=== PATIENT | male | born 1935 | race Caucasian/White ===

== ENCOUNTER 2020-02-02 11:08 | Inpatient (IN) ==
[2020-02-02 11:51] LABS: Basophils % 0.1 % (0.0-0.8); Hemoglobin 12.2 GM/DL (14.0-18.0); Hgb & Hct Comparison OK; Immature Granulocytes % 0.4 %; Lymphocytes # 21.3 10*3/uL (1.4-4.0); Lymphocytes % 80.9 % (21.2-54.2); Mean Corpuscular Hemoglobin 34 PG (27-34); Mean Corpuscular Volume 103.4 FL (87-102); Monocytes # 0.2 10*3/uL (0.11-0.8); Monocytes % 0.9 % (1.7-12.7); Neutrophils # 4.7 10*3/uL (1.4-7.4); Neutrophils % 17.7 % (38.7-73.9); Platelet Count 192 T/CUMM (130-400)
[2020-02-02 12:07] LABS: Albumin/Globulin Ratio 0.9 RATIO (1.1-2.2); Anion Gap 11.8 MMOL/L (5.0-15.0); Bilirubin,Total 0.8 MG/DL (0.2-1.0); Globulin 3.5 G/DL (2.3-3.5); Osmolality,Calculated 267.4 MOS/KG (273-304); Potassium 3.8 MMOL/L (3.5-5.1)
[2020-02-02] MEDS: ACETAMINOPHEN 325 MG TABLET PO PRN ×2 (12:10→20:31)
[2020-02-02] MEDS ORDERED: LEVOFLOXACIN INJ 750 MG in PREMIX 1 EACH IV STA (12:14)
[2020-02-02] MEDS ORDERED: LEVOFLOXACIN INJ 150 ML IV ONE (12:28)
[2020-02-02 12:32] LABS: Atypical Lymphocytes 1+; Lymphocytes 71 % (20-55); Monocytes 1 % (2-15); Segmented Neutrophils 28 % (50-85); Smudge Cells Moderate; Total Cells Counted 100
[2020-02-02 12:33] LABS: Macrocytosis 1+; Platelet Estimate Adequate
[2020-02-02] MEDS ORDERED: ALBUTEROL/IPRATROPIUM 3 ML NEB RESP TX PRN (14:30)
[2020-02-02] MEDS ORDERED: DEXTROSE 50% 25 GM/50 ML VIAL IV PRN (14:30)
[2020-02-02] MEDS ORDERED: ONDANSETRON 4 MG/2 ML VIAL IV PRN (14:30)
[2020-02-02] MEDS ORDERED: GLUCAGON 1 MG VIAL IM PRN (14:30)
[2020-02-02] MEDS ORDERED: LACTULOSE 20 GM/30 ML UDCUP PO PRN (14:30)
[2020-02-02] MEDS ORDERED: DOCUSATE SODIUM 100 MG CAPSULE PO PRN (14:30)
[2020-02-02] MEDS: ENOXAPARIN 40 MG/0.4 ML SYRINGE SUBCUT SCH (20:31)
[2020-02-02] MEDS ORDERED: guaiFENesin/DM ER 600-30 MG TABLET PO SCH (21:00)
[2020-02-03 03:54] LABS: Basophils % 0.1 % (0.0-0.8); Eosinophils # 0.1 10*3/uL (0.0-0.87); Eosinophils % 0.6 % (0.00-10.9); Hemoglobin 12.2 GM/DL (14.0-18.0); Hgb & Hct Comparison OK; Immature Granulocytes % 0.2 %; Immature Granulocytes Absolute 0.05 #; Lymphocytes # 17.5 10*3/uL (1.4-4.0); Lymphocytes % 80.8 % (21.2-54.2); Mean Corpuscular Hemoglobin 34 PG (27-34); Mean Corpuscular Volume 101.9 FL (87-102); Monocytes # 0.3 10*3/uL (0.11-0.8); Monocytes % 1.2 % (1.7-12.7); Neutrophils # 3.7 10*3/uL (1.4-7.4); Neutrophils % 17.1 % (38.7-73.9); Platelet Count 190 T/CUMM (130-400)
[2020-02-03 04:17] LABS: Lymphocytes 64 % (20-55); Monocytes 3 % (2-15); Segmented Neutrophils 33 % (50-85)
[2020-02-03 04:18] LABS: Platelet Estimate Normal; Total Cells Counted 100
[2020-02-03 04:19] LABS: Albumin/Globulin Ratio 0.8 RATIO (1.1-2.2); Anion Gap 8.4 MMOL/L (5.0-15.0); Bilirubin,Total 0.8 MG/DL (0.2-1.0); Globulin 3.4 G/DL (2.3-3.5); Osmolality,Calculated 270.1 MOS/KG (273-304); Potassium 4.4 MMOL/L (3.5-5.1); VLDL CHOLESTEROL 10.8 MG/DL
[2020-02-03] MEDS: LEVOTHYROXINE 88 MCG TABLET PO SCH (06:06)
[2020-02-03] MEDS: ACETAMINOPHEN 325 MG TABLET PO PRN ×2 (06:06→12:20)
[2020-02-03] MEDS: predniSONE 5 MG TABLET PO SCH (09:13)
[2020-02-03] MEDS: PANTOPRAZOLE 40 MG TABLET PO SCH (09:13)
[2020-02-03] MEDS: LEVOFLOXACIN INJ 750 MG in PREMIX 1 EACH IV SCH (11:40)
[2020-02-03] MEDS: SCOPOLAMINE 1.5 MG PATCH TRANSDERM SCH (12:19)
[2020-02-03] MEDS: ENOXAPARIN 40 MG/0.4 ML SYRINGE SUBCUT SCH (20:54)
[2020-02-04] MEDS: ACETAMINOPHEN 325 MG TABLET PO PRN ×3 (02:15→20:13)
[2020-02-04 06:05] LABS: Basophils % 0.1 % (0.0-0.8); Hematocrit 34.9 VOL% (42.0-52.0); Hemoglobin 11.8 GM/DL (14.0-18.0); Hgb & Hct Comparison OK; Immature Granulocytes % 0.3 %; Immature Granulocytes Absolute 0.07 #; Lymphocytes # 18.7 10*3/uL (1.4-4.0); Lymphocytes % 84.6 % (21.2-54.2); Mean Corpuscular HGB Conc 33.8 GM/DL (32-36); Mean Corpuscular Hemoglobin 34 PG (27-34); Mean Corpuscular Volume 101.2 FL (87-102); Monocytes # 0.1 10*3/uL (0.11-0.8); Monocytes % 0.6 % (1.7-12.7); Neutrophils # 3.2 10*3/uL (1.4-7.4); Neutrophils % 14.4 % (38.7-73.9); Platelet Count 178 T/CUMM (130-400)
[2020-02-04 06:22] LABS: Albumin/Globulin Ratio 0.7 RATIO (1.1-2.2); Anion Gap 9.6 MMOL/L (5.0-15.0); Bilirubin,Total 0.8 MG/DL (0.2-1.0); Globulin 3.5 G/DL (2.3-3.5); Osmolality,Calculated 265.4 MOS/KG (273-304); Potassium 3.6 MMOL/L (3.5-5.1)
[2020-02-04] MEDS: LEVOTHYROXINE 88 MCG TABLET PO SCH (06:24)
[2020-02-04 08:39] LABS: Atypical Lymphocytes Few; Lymphocytes 82 % (20-55); Monocytes 1 % (2-15); Platelet Estimate Normal; Segmented Neutrophils 16 % (50-85); Smudge Cells 1+; Total Cells Counted 100
[2020-02-04 08:40] LABS: Macrocytosis Slight
[2020-02-04] MEDS: predniSONE 5 MG TABLET PO SCH (08:57)
[2020-02-04] MEDS: PANTOPRAZOLE 40 MG TABLET PO SCH (08:57)
[2020-02-04] MEDS: LEVOFLOXACIN INJ 750 MG in PREMIX 1 EACH IV SCH (11:22)
[2020-02-04] MEDS: PIPERACILLIN/TAZOBACTAM 3,375 MG in SODIUM CHLORIDE 0.9% 100 ML IV SCH ×2 (13:44→20:13)
[2020-02-04] MEDS: ENOXAPARIN 40 MG/0.4 ML SYRINGE SUBCUT SCH (20:13)
[2020-02-05] MEDS: PIPERACILLIN/TAZOBACTAM 3,375 MG in SODIUM CHLORIDE 0.9% 100 ML IV SCH ×3 (03:18→17:25)
[2020-02-05 05:37] LABS: Basophils % 0.1 % (0.0-0.8); Hematocrit 35.5 VOL% (42.0-52.0); Hgb & Hct Comparison OK; Immature Granulocytes % 0.3 %; Immature Granulocytes Absolute 0.07 #; Lymphocytes # 18.1 10*3/uL (1.4-4.0); Lymphocytes % 78.2 % (21.2-54.2); Mean Corpuscular HGB Conc 33.8 GM/DL (32-36); Mean Corpuscular Hemoglobin 34 PG (27-34); Mean Corpuscular Volume 100.9 FL (87-102); Monocytes # 1.1 10*3/uL (0.11-0.8); Monocytes % 4.6 % (1.7-12.7); Neutrophils # 3.9 10*3/uL (1.4-7.4); Neutrophils % 16.8 % (38.7-73.9); Platelet Count 186 T/CUMM (130-400)
[2020-02-05 06:03] LABS: Atypical Lymphocytes Few; Band Neutrophils 2 % (0-10); Blast Cells 2; Lymphocytes 75 % (20-55); Monocytes 1 % (2-15); Segmented Neutrophils 20 % (50-85); Smudge Cells Few; Total Cells Counted 100
[2020-02-05] MEDS: LEVOTHYROXINE 88 MCG TABLET PO SCH (06:03)
[2020-02-05 06:04] LABS: Hypochromasia 1+; Macrocytosis 1+; Platelet Estimate Adequate
[2020-02-05 06:06] LABS: Albumin/Globulin Ratio 0.6 RATIO (1.1-2.2); Anion Gap 11.1 MMOL/L (5.0-15.0); Bilirubin,Total 0.9 MG/DL (0.2-1.0); Globulin 3.7 G/DL (2.3-3.5); Magnesium 1.9 MG/DL (1.8-2.4); Osmolality,Calculated 266.4 MOS/KG (273-304); Potassium 4.1 MMOL/L (3.5-5.1)
[2020-02-05] MEDS: DEXAMETHASONE 4 MG TABLET PO SCH (09:14)
[2020-02-05] MEDS: PANTOPRAZOLE 40 MG TABLET PO SCH (09:14)
[2020-02-05] MEDS: LEVOFLOXACIN INJ 750 MG in PREMIX 1 EACH IV SCH (13:46)
[2020-02-05] MEDS: ENOXAPARIN 40 MG/0.4 ML SYRINGE SUBCUT SCH (20:37)
[2020-02-06] MEDS: PIPERACILLIN/TAZOBACTAM 3,375 MG in SODIUM CHLORIDE 0.9% 100 ML IV SCH ×2 (01:09→08:26)
[2020-02-06 05:43] LABS: Basophils % 0.2 % (0.0-0.8); Hematocrit 35.7 VOL% (42.0-52.0); Hemoglobin 12.1 GM/DL (14.0-18.0); Hgb & Hct Comparison OK; Immature Granulocytes % 0.3 %; Immature Granulocytes Absolute 0.07 #; Lymphocytes # 19.7 10*3/uL (1.4-4.0); Lymphocytes % 78.3 % (21.2-54.2); Mean Corpuscular HGB Conc 33.9 GM/DL (32-36); Mean Corpuscular Hemoglobin 34 PG (27-34); Mean Corpuscular Volume 100.6 FL (87-102); Monocytes # 0.3 10*3/uL (0.11-0.8); Monocytes % 1.2 % (1.7-12.7); NRBC # 0.02 10*3/uL; Neutrophils # 5.1 10*3/uL (1.4-7.4); Nucleated Red Blood Cells % 0.1 /100WBC; Platelet Count 197 T/CUMM (130-400)
[2020-02-06] MEDS: LEVOTHYROXINE 88 MCG TABLET PO SCH (06:00)
[2020-02-06 06:09] LABS: Albumin/Globulin Ratio 0.6 RATIO (1.1-2.2); Anion Gap 14.1 MMOL/L (5.0-15.0); Bilirubin,Total 1.3 MG/DL (0.2-1.0); Globulin 3.7 G/DL (2.3-3.5); Osmolality,Calculated 272.1 MOS/KG (273-304); Potassium 4.1 MMOL/L (3.5-5.1)
[2020-02-06 06:25] LABS: Atypical Lymphocytes Few; Lymphocytes 77 % (20-55); Monocytes 1 % (2-15); Segmented Neutrophils 21 % (50-85); Smudge Cells Few
[2020-02-06 06:26] LABS: Blast Cells 1; Total Cells Counted 100
[2020-02-06 06:27] LABS: Hypochromasia 1+; Macrocytosis 1+; Platelet Estimate Adequate
[2020-02-06] MEDS: DEXAMETHASONE 4 MG TABLET PO SCH (08:24)
[2020-02-06] MEDS: PANTOPRAZOLE 40 MG TABLET PO SCH (08:25)
[2020-02-06] MEDS: SCOPOLAMINE 1.5 MG PATCH TRANSDERM SCH (08:25)
[2020-02-06] MEDS: ACETAMINOPHEN 325 MG TABLET PO PRN (08:26)
[2020-02-06] MEDS: SODIUM CHLORIDE 0.9% 1,000 ML IV SCH (11:53)
[2020-02-06] MEDS ORDERED: BENZOCAINE/MENTHOL LOZENGE 18/BOX PO PRN (13:46)
[2020-02-06 15:16] LABS: ABG Base Excess -1.7 MMOL/L (-2.5-2.5); ABG HCO3 22.9 MMOL/L (20-26); ABG Oxygen Saturation 92.6 % (95-100); ABG PH 7.423 (7.35-7.45); ABG TCO2 19.5 MMOL/L (23-27)
[2020-02-06] MEDS: ENOXAPARIN 40 MG/0.4 ML SYRINGE SUBCUT SCH (21:48)
[2020-02-07] MEDS: SODIUM CHLORIDE 0.9% 1,000 ML IV SCH ×2 (02:37→15:56)
[2020-02-07 05:08] LABS: Basophils % 0.1 % (0.0-0.8); Hematocrit 33.3 VOL% (42.0-52.0); Hemoglobin 10.9 GM/DL (14.0-18.0); Hgb & Hct Comparison OK; Immature Granulocytes % 0.3 %; Immature Granulocytes Absolute 0.06 #; Lymphocytes # 17.7 10*3/uL (1.4-4.0); Lymphocytes % 77.8 % (21.2-54.2); Mean Corpuscular HGB Conc 32.7 GM/DL (32-36); Mean Corpuscular Hemoglobin 34 PG (27-34); Mean Corpuscular Volume 103.4 FL (87-102); Monocytes # 0.1 10*3/uL (0.11-0.8); Monocytes % 0.6 % (1.7-12.7); Neutrophils # 4.8 10*3/uL (1.4-7.4); Neutrophils % 21.2 % (38.7-73.9); Platelet Count 215 T/CUMM (130-400)
[2020-02-07] MEDS: ACETAMINOPHEN 325 MG TABLET PO PRN ×3 (05:11→21:12)
[2020-02-07 06:07] LABS: Albumin/Globulin Ratio 0.7 RATIO (1.1-2.2); Anion Gap 10.1 MMOL/L (5.0-15.0); Bilirubin,Total 1.1 MG/DL (0.2-1.0); Globulin 3.3 G/DL (2.3-3.5); Potassium 4.1 MMOL/L (3.5-5.1)
[2020-02-07 06:58] LABS: Atypical Lymphocytes Few; Band Neutrophils 1 % (0-10); Blast Cells 2; Lymphocytes 72 % (20-55); Monocytes 2 % (2-15); Platelet Estimate Adequate; Segmented Neutrophils 23 % (50-85); Smudge Cells Moderate; Total Cells Counted 100
[2020-02-07 06:59] LABS: Hypochromasia 1+; Macrocytosis Slight
[2020-02-07] MEDS: LEVOTHYROXINE 88 MCG TABLET PO SCH (07:02)
[2020-02-07] MEDS: ATORVASTATIN 20 MG TABLET PO SCH (08:47)
[2020-02-07] MEDS: PANTOPRAZOLE 40 MG TABLET PO SCH (08:47)
[2020-02-07] MEDS: DEXAMETHASONE 4 MG TABLET PO SCH (08:48)
[2020-02-07] MEDS ORDERED: METOPROLOL SUCCINATE XL 25 MG TABLET PO SCH (09:00)
[2020-02-07] MEDS: ENOXAPARIN 40 MG/0.4 ML SYRINGE SUBCUT SCH (21:13)
[2020-02-08] MEDS: ACETAMINOPHEN 325 MG TABLET PO PRN (05:00)
[2020-02-08] MEDS: SODIUM CHLORIDE 0.9% 1,000 ML IV SCH ×2 (05:01→21:49)
[2020-02-08 05:09] LABS: Basophils % 0.1 % (0.0-0.8); Hematocrit 38.1 VOL% (42.0-52.0); Hemoglobin 12.3 GM/DL (14.0-18.0); Hgb & Hct Comparison OK; Immature Granulocytes % 0.5 %; Immature Granulocytes Absolute 0.13 #; Lymphocytes # 18.6 10*3/uL (1.4-4.0); Lymphocytes % 69.7 % (21.2-54.2); Mean Corpuscular HGB Conc 32.3 GM/DL (32-36); Mean Corpuscular Hemoglobin 34 PG (27-34); Mean Corpuscular Volume 105.2 FL (87-102); Monocytes # 0.2 10*3/uL (0.11-0.8); Monocytes % 0.6 % (1.7-12.7); Neutrophils # 7.8 10*3/uL (1.4-7.4); Neutrophils % 29.1 % (38.7-73.9); Platelet Count 247 T/CUMM (130-400)
[2020-02-08 05:43] LABS: Atypical Lymphocytes Few; Blast Cells 1; Hypochromasia 1+; Lymphocytes 72 % (20-55); Segmented Neutrophils 27 % (50-85); Smudge Cells Moderate; Total Cells Counted 100
[2020-02-08 05:44] LABS: Macrocytosis 1+; Platelet Estimate Normal
[2020-02-08 05:47] LABS: Albumin/Globulin Ratio 0.7 RATIO (1.1-2.2); Anion Gap 13.3 MMOL/L (5.0-15.0); Potassium 4.3 MMOL/L (3.5-5.1)
[2020-02-08] MEDS: PANTOPRAZOLE 40 MG TABLET PO SCH (08:49)
[2020-02-08] MEDS: DEXAMETHASONE 4 MG TABLET PO SCH (08:49)
[2020-02-08] MEDS: LEVOTHYROXINE 88 MCG TABLET PO SCH (08:49)
[2020-02-08] MEDS: ATORVASTATIN 20 MG TABLET PO SCH (08:49)
[2020-02-08] MEDS: ENOXAPARIN 40 MG/0.4 ML SYRINGE SUBCUT SCH (21:50)
[2020-02-09] MEDS: ACETAMINOPHEN 325 MG TABLET PO PRN (05:25)
[2020-02-09 06:29] LABS: Basophils % 0.1 % (0.0-0.8); Hematocrit 34.1 VOL% (42.0-52.0); Hgb & Hct Comparison OK; Immature Granulocytes % 0.5 %; Immature Granulocytes Absolute 0.12 #; Lymphocytes # 16.1 10*3/uL (1.4-4.0); Lymphocytes % 63.6 % (21.2-54.2); Mean Corpuscular HGB Conc 32.3 GM/DL (32-36); Mean Corpuscular Hemoglobin 34 PG (27-34); Mean Corpuscular Volume 104.3 FL (87-102); Monocytes # 0.2 10*3/uL (0.11-0.8); Monocytes % 0.6 % (1.7-12.7); Neutrophils # 8.9 10*3/uL (1.4-7.4); Neutrophils % 35.2 % (38.7-73.9); Platelet Count 283 T/CUMM (130-400)
[2020-02-09 06:57] LABS: Anion Gap 10.2 MMOL/L (5.0-15.0); Osmolality,Calculated 269.2 MOS/KG (273-304); Potassium 4.2 MMOL/L (3.5-5.1)
[2020-02-09 07:24] LABS: Atypical Lymphocytes Few; Blast Cells 2; Lymphocytes 61 % (20-55); Platelet Estimate Adequate; Segmented Neutrophils 37 % (50-85); Smudge Cells Few; Total Cells Counted 100
[2020-02-09 07:25] LABS: Macrocytosis Slight
[2020-02-09] MEDS: LEVOTHYROXINE 88 MCG TABLET PO SCH (08:25)
[2020-02-09] MEDS: ATORVASTATIN 20 MG TABLET PO SCH (08:26)
[2020-02-09] MEDS: DEXAMETHASONE 4 MG TABLET PO SCH (08:27)
[2020-02-09] MEDS: SODIUM CHLORIDE 0.9% 1,000 ML IV SCH (11:51)
[2020-02-09] MEDS ORDERED: REMDESIVIR 200 MG in SODIUM CHLORIDE 0.9% 210 ML IV ONE (12:00)
[2020-02-09] MEDS: ENOXAPARIN 40 MG/0.4 ML SYRINGE SUBCUT SCH (20:25)
[2020-02-10] MEDS: ACETAMINOPHEN 325 MG TABLET PO PRN (01:12)
[2020-02-10] MEDS: SODIUM CHLORIDE 0.9% 1,000 ML IV SCH (02:11)
[2020-02-10] MEDS: LEVOTHYROXINE 88 MCG TABLET PO SCH (06:05)
[2020-02-10 08:01] LABS: Albumin/Globulin Ratio 0.6 RATIO (1.1-2.2); Anion Gap 9.2 MMOL/L (5.0-15.0); Globulin 3.6 G/DL (2.3-3.5); Osmolality,Calculated 283.5 MOS/KG (273-304); Potassium 4.2 MMOL/L (3.5-5.1)
[2020-02-10] MEDS: DEXAMETHASONE 4 MG TABLET PO SCH (08:25)
[2020-02-10] MEDS: ATORVASTATIN 20 MG TABLET PO SCH (08:25)
[2020-02-10] MEDS ORDERED: MAGNESIUM HYDROXIDE SUSP 30 ML UDCUP PO PRN (09:14)
[2020-02-10] MEDS ORDERED: MAGNESIUM HYDROXIDE SUSP 30 ML UDCUP PO ONE (09:14)
[2020-02-10] MEDS: REMDESIVIR 100 MG in SODIUM CHLORIDE 0.9% 230 ML IV SCH (12:08)
[2020-02-10 12:40] LABS: 25 Hydroxy Vitamin D Total 19.4 NG/ML
[2020-02-10] MEDS: ASCORBIC ACID 500 MG TABLET PO SCH ×2 (13:14→22:23)
[2020-02-10] MEDS: ZINC SULFATE 220 MG CAPSULE PO SCH (13:14)
[2020-02-10] MEDS: ENOXAPARIN 40 MG/0.4 ML SYRINGE SUBCUT SCH (22:23)
[2020-02-11 05:56] LABS: Albumin/Globulin Ratio 0.6 RATIO (1.1-2.2); Anion Gap 9.6 MMOL/L (5.0-15.0); Bilirubin,Total 1.1 MG/DL (0.2-1.0); Globulin 4.1 G/DL (2.3-3.5); Osmolality,Calculated 280.7 MOS/KG (273-304); Potassium 4.6 MMOL/L (3.5-5.1)
[2020-02-11] MEDS: LEVOTHYROXINE 88 MCG TABLET PO SCH (06:22)
[2020-02-11] MEDS: SODIUM CHLORIDE 0.9% 1,000 ML IV SCH (06:57)
[2020-02-11] MEDS: ASCORBIC ACID 500 MG TABLET PO SCH ×2 (08:45→22:00)
[2020-02-11] MEDS: ATORVASTATIN 20 MG TABLET PO SCH (08:45)
[2020-02-11] MEDS: DEXAMETHASONE 4 MG TABLET PO SCH (08:45)
[2020-02-11] MEDS: ZINC SULFATE 220 MG CAPSULE PO SCH (08:45)
[2020-02-11] MEDS: REMDESIVIR 100 MG in SODIUM CHLORIDE 0.9% 230 ML IV SCH (11:53)
[2020-02-11] MEDS ORDERED: FUROSEMIDE 20 MG/2 ML VIAL IV ONE (14:28)
[2020-02-11] MEDS: ENOXAPARIN 40 MG/0.4 ML SYRINGE SUBCUT SCH (21:59)
[2020-02-12 06:35] LABS: Albumin/Globulin Ratio 0.6 RATIO (1.1-2.2); Anion Gap 7.4 MMOL/L (5.0-15.0); Bilirubin,Total 0.7 MG/DL (0.2-1.0); Globulin 3.6 G/DL (2.3-3.5); Potassium 4.4 MMOL/L (3.5-5.1)
[2020-02-12] MEDS: LEVOTHYROXINE 112 MCG TABLET PO SCH (07:16)
[2020-02-12] MEDS: ATORVASTATIN 20 MG TABLET PO SCH (09:19)
[2020-02-12] MEDS: ASCORBIC ACID 500 MG TABLET PO SCH ×2 (09:19→21:20)
[2020-02-12] MEDS: ZINC SULFATE 220 MG CAPSULE PO SCH (09:19)
[2020-02-12] MEDS: REMDESIVIR 100 MG in SODIUM CHLORIDE 0.9% 230 ML IV SCH (13:12)
[2020-02-12] MEDS: ENOXAPARIN 40 MG/0.4 ML SYRINGE SUBCUT SCH (21:20)
[2020-02-13] MEDS: LEVOTHYROXINE 112 MCG TABLET PO SCH (06:20)
[2020-02-13 06:45] LABS: Albumin/Globulin Ratio 0.5 RATIO (1.1-2.2); Anion Gap 12.9 MMOL/L (5.0-15.0); Bilirubin,Total 2.3 MG/DL (0.2-1.0); Potassium 4.9 MMOL/L (3.5-5.1)
[2020-02-13] MEDS: VALSARTAN 80 MG TABLET PO SCH (08:37)
[2020-02-13] MEDS: ASCORBIC ACID 500 MG TABLET PO SCH ×2 (08:37→21:34)
[2020-02-13] MEDS: ATORVASTATIN 20 MG TABLET PO SCH (08:37)
[2020-02-13] MEDS: ZINC SULFATE 220 MG CAPSULE PO SCH (08:37)
[2020-02-13] MEDS: REMDESIVIR 100 MG in SODIUM CHLORIDE 0.9% 230 ML IV SCH (12:07)
[2020-02-13] MEDS ORDERED: FUROSEMIDE 40 MG/4 ML VIAL IV ONE (16:03)
[2020-02-13] MEDS: ENOXAPARIN 40 MG/0.4 ML SYRINGE SUBCUT SCH (21:33)
[2020-02-14] MEDS: LEVOTHYROXINE 112 MCG TABLET PO SCH (06:25)
[2020-02-14 06:39] LABS: Albumin/Globulin Ratio 0.6 RATIO (1.1-2.2); Anion Gap 10.8 MMOL/L (5.0-15.0); Bilirubin,Total 1.6 MG/DL (0.2-1.0); Globulin 3.9 G/DL (2.3-3.5); Osmolality,Calculated 277.8 MOS/KG (273-304); Potassium 3.8 MMOL/L (3.5-5.1)
[2020-02-14] MEDS: LINEZOLID 600 MG TABLET PO SCH ×2 (09:16→20:52)
[2020-02-14] MEDS: ZINC SULFATE 220 MG CAPSULE PO SCH (09:16)
[2020-02-14] MEDS: ASCORBIC ACID 500 MG TABLET PO SCH ×2 (09:16→20:52)
[2020-02-14] MEDS: ENOXAPARIN 60 MG/0.6 ML SYRINGE SUBCUT SCH ×2 (09:16→20:52)
[2020-02-14] MEDS: CEFEPIME 1,000 MG in SODIUM CHLORIDE 0.9% 100 ML IV SCH ×3 (09:16→20:51)
[2020-02-14] MEDS: VALSARTAN 80 MG TABLET PO SCH (09:17)
[2020-02-15] MEDS: CEFEPIME 1,000 MG in SODIUM CHLORIDE 0.9% 100 ML IV SCH ×4 (03:46→20:19)
[2020-02-15 05:52] LABS: Anion Gap 11.2 MMOL/L (5.0-15.0); Osmolality,Calculated 273.1 MOS/KG (273-304); Potassium 4.2 MMOL/L (3.5-5.1)
[2020-02-15] MEDS: LEVOTHYROXINE 112 MCG TABLET PO SCH (05:59)
[2020-02-15] MEDS: LINEZOLID 600 MG TABLET PO SCH ×2 (08:47→20:20)
[2020-02-15] MEDS: VALSARTAN 80 MG TABLET PO SCH (08:47)
[2020-02-15] MEDS: ZINC SULFATE 220 MG CAPSULE PO SCH (08:47)
[2020-02-15] MEDS: ASCORBIC ACID 500 MG TABLET PO SCH ×2 (08:47→20:20)
[2020-02-15] MEDS: ENOXAPARIN 60 MG/0.6 ML SYRINGE SUBCUT SCH ×2 (08:47→20:19)
[2020-02-16] MEDS: CEFEPIME 1,000 MG in SODIUM CHLORIDE 0.9% 100 ML IV SCH ×4 (02:51→21:48)
[2020-02-16] MEDS: LEVOTHYROXINE 112 MCG TABLET PO SCH (06:11)
[2020-02-16] MEDS: VALSARTAN 80 MG TABLET PO SCH (09:08)
[2020-02-16] MEDS: LINEZOLID 600 MG TABLET PO SCH ×2 (09:09→21:48)
[2020-02-16] MEDS: ZINC SULFATE 220 MG CAPSULE PO SCH (09:09)
[2020-02-16] MEDS: ASCORBIC ACID 500 MG TABLET PO SCH ×2 (09:09→21:48)
[2020-02-16] MEDS: ENOXAPARIN 60 MG/0.6 ML SYRINGE SUBCUT SCH ×2 (09:10→21:49)
[2020-02-17] MEDS: CEFEPIME 1,000 MG in SODIUM CHLORIDE 0.9% 100 ML IV SCH ×4 (03:57→21:15)
[2020-02-17 05:41] LABS: Basophils % 0.2 % (0.0-0.8); Eosinophils % 0.1 % (0.00-10.9); Hematocrit 37.1 VOL% (42.0-52.0); Hemoglobin 12.3 GM/DL (14.0-18.0); Hgb & Hct Comparison OK; Immature Granulocytes % 2.4 %; Immature Granulocytes Absolute 0.35 #; Lymphocytes # 5.8 10*3/uL (1.4-4.0); Lymphocytes % 40.7 % (21.2-54.2); Mean Corpuscular HGB Conc 33.2 GM/DL (32-36); Mean Corpuscular Hemoglobin 34 PG (27-34); Mean Corpuscular Volume 102.8 FL (87-102); Monocytes # 0.5 10*3/uL (0.11-0.8); Monocytes % 3.4 % (1.7-12.7); Neutrophils # 7.6 10*3/uL (1.4-7.4); Neutrophils % 53.2 % (38.7-73.9); Platelet Count 387 T/CUMM (130-400)
[2020-02-17 06:13] LABS: Anion Gap 9.6 MMOL/L (5.0-15.0); Osmolality,Calculated 271.1 MOS/KG (273-304); Potassium 4.6 MMOL/L (3.5-5.1)
[2020-02-17] MEDS: LEVOTHYROXINE 112 MCG TABLET PO SCH (06:13)
[2020-02-17] MEDS: ENOXAPARIN 60 MG/0.6 ML SYRINGE SUBCUT SCH ×2 (10:17→21:09)
[2020-02-17 11:05] LABS: Platelet Estimate Increased
[2020-02-17] MEDS: VALSARTAN 80 MG TABLET PO SCH (11:22)
[2020-02-17] MEDS: ASCORBIC ACID 500 MG TABLET PO SCH ×2 (11:23→21:54)
[2020-02-17] MEDS: ZINC SULFATE 220 MG CAPSULE PO SCH (11:23)
[2020-02-17] MEDS: LINEZOLID 600 MG TABLET PO SCH ×2 (11:23→21:54)
[2020-02-17] MEDS: SODIUM CHLORIDE 0.9% 1,000 ML IV SCH (12:40)
[2020-02-17] MEDS: ATROVENT INHALER INH SCH ×3 (14:48→22:10)
[2020-02-17] MEDS: ALBUTEROL INHALER 18 GM INH SCH ×3 (14:48→22:10)
[2020-02-17] MEDS ORDERED: ALBUTEROL/IPRATROPIUM 3 ML NEB RESP TX SCH (15:00)
[2020-02-17] MEDS ORDERED: ACETYLCYSTEINE 20% 800 MG/4 ML VIAL RESP TX SCH (15:00)
[2020-02-17] MEDS: guaiFENesin 200 MG/10 ML UDCUP PO SCH (21:10)
[2020-02-18] MEDS: SODIUM CHLORIDE 0.9% 1,000 ML IV SCH ×2 (01:49→14:31)
[2020-02-18] MEDS: CEFEPIME 1,000 MG in SODIUM CHLORIDE 0.9% 100 ML IV SCH ×4 (03:16→21:06)
[2020-02-18] MEDS: LEVOTHYROXINE 112 MCG TABLET PO SCH (06:27)
[2020-02-18] MEDS: ENOXAPARIN 60 MG/0.6 ML SYRINGE SUBCUT SCH ×2 (09:27→21:09)
[2020-02-18] MEDS: ATROVENT INHALER INH SCH ×4 (09:58→21:12)
[2020-02-18] MEDS: guaiFENesin 200 MG/10 ML UDCUP PO SCH ×2 (09:58→21:14)
[2020-02-18] MEDS: ALBUTEROL INHALER 18 GM INH SCH ×4 (09:58→21:11)
[2020-02-18] MEDS: LINEZOLID 600 MG TABLET PO SCH ×2 (09:59→21:11)
[2020-02-18] MEDS: VALSARTAN 80 MG TABLET PO SCH (09:59)
[2020-02-18] MEDS: ZINC SULFATE 220 MG CAPSULE PO SCH (09:59)
[2020-02-18] MEDS: ASCORBIC ACID 500 MG TABLET PO SCH ×2 (09:59→21:11)
[2020-02-19] MEDS: CEFEPIME 1,000 MG in SODIUM CHLORIDE 0.9% 100 ML IV SCH ×4 (02:30→21:18)
[2020-02-19] MEDS: SODIUM CHLORIDE 0.9% 1,000 ML IV SCH ×3 (06:04→21:28)
[2020-02-19] MEDS: LEVOTHYROXINE 112 MCG TABLET PO SCH (06:06)
[2020-02-19] MEDS: VALSARTAN 80 MG TABLET PO SCH (08:19)
[2020-02-19] MEDS: ATROVENT INHALER INH SCH ×4 (08:20→21:31)
[2020-02-19] MEDS: ENOXAPARIN 60 MG/0.6 ML SYRINGE SUBCUT SCH ×2 (08:20→21:19)
[2020-02-19] MEDS: ALBUTEROL INHALER 18 GM INH SCH ×4 (08:21→21:31)
[2020-02-19] MEDS: ASCORBIC ACID 500 MG TABLET PO SCH ×2 (08:21→21:29)
[2020-02-19] MEDS: guaiFENesin 200 MG/10 ML UDCUP PO SCH ×2 (08:21→21:29)
[2020-02-19] MEDS: ZINC SULFATE 220 MG CAPSULE PO SCH (08:21)
[2020-02-19] MEDS: LINEZOLID 600 MG TABLET PO SCH ×2 (08:22→21:29)
[2020-02-20] MEDS: CEFEPIME 1,000 MG in SODIUM CHLORIDE 0.9% 100 ML IV SCH ×4 (02:47→20:31)
[2020-02-20] MEDS: SODIUM CHLORIDE 0.9% 1,000 ML IV SCH ×2 (05:31→09:26)
[2020-02-20] MEDS: LEVOTHYROXINE 112 MCG TABLET PO SCH (06:08)
[2020-02-20] MEDS: ENOXAPARIN 60 MG/0.6 ML SYRINGE SUBCUT SCH ×2 (08:04→20:30)
[2020-02-20] MEDS: VALSARTAN 80 MG TABLET PO SCH (08:05)
[2020-02-20] MEDS: guaiFENesin 200 MG/10 ML UDCUP PO SCH ×2 (08:05→20:32)
[2020-02-20] MEDS: ALBUTEROL INHALER 18 GM INH SCH ×4 (08:05→20:59)
[2020-02-20] MEDS: ATROVENT INHALER INH SCH ×4 (08:05→20:59)
[2020-02-20] MEDS: ZINC SULFATE 220 MG CAPSULE PO SCH (08:06)
[2020-02-20] MEDS: LINEZOLID 600 MG TABLET PO SCH ×2 (08:06→20:32)
[2020-02-20] MEDS: ASCORBIC ACID 500 MG TABLET PO SCH ×2 (08:06→20:32)
[2020-02-21] MEDS: CEFEPIME 1,000 MG in SODIUM CHLORIDE 0.9% 100 ML IV SCH ×2 (03:53→09:50)
[2020-02-21] MEDS: LEVOTHYROXINE 112 MCG TABLET PO SCH (06:49)
[2020-02-21 06:50] LABS: Anion Gap 11.5 MMOL/L (5.0-15.0); Magnesium 2.1 MG/DL (1.8-2.4); Osmolality,Calculated 279.3 MOS/KG (273-304); Phosphorous 1.8 MG/DL (2.5-4.9); Potassium 3.5 MMOL/L (3.5-5.1)
[2020-02-21] MEDS: SODIUM CHLORIDE 0.9% 1,000 ML IV SCH ×3 (07:03→14:43)
[2020-02-21] MEDS: ENOXAPARIN 60 MG/0.6 ML SYRINGE SUBCUT SCH (09:47)
[2020-02-21] MEDS: ALBUTEROL INHALER 18 GM INH SCH ×4 (09:48→20:59)
[2020-02-21] MEDS: ZINC SULFATE 220 MG CAPSULE PO SCH (09:50)
[2020-02-21] MEDS: guaiFENesin 200 MG/10 ML UDCUP PO SCH ×2 (09:50→20:58)
[2020-02-21] MEDS: LINEZOLID 600 MG TABLET PO SCH (09:50)
[2020-02-21] MEDS: ASCORBIC ACID 500 MG TABLET PO SCH ×2 (09:50→20:58)
[2020-02-21] MEDS: VALSARTAN 80 MG TABLET PO SCH (09:50)
[2020-02-21] MEDS: DEXTROSE 5% NACL 0.9% 1,000 ML IV SCH (18:09)
[2020-02-21] MEDS: ATROVENT INHALER INH SCH ×2 (19:22→21:00)
[2020-02-22] MEDS: DEXTROSE 5% NACL 0.9% 1,000 ML IV SCH ×2 (03:37→17:00)
[2020-02-22 05:15] LABS: Anion Gap 11.3 MMOL/L (5.0-15.0); Magnesium 2.3 MG/DL (1.8-2.4); Osmolality,Calculated 283.1 MOS/KG (273-304); Phosphorous 1.8 MG/DL (2.5-4.9); Potassium 3.3 MMOL/L (3.5-5.1)
[2020-02-22] MEDS: LEVOTHYROXINE 112 MCG TABLET PO SCH (06:03)
[2020-02-22] MEDS ORDERED: LACTATED RINGERS 1,000 ML IV SCH ×2 (08:00→08:30)
[2020-02-22] MEDS: ATROVENT INHALER INH SCH ×4 (08:15→20:02)
[2020-02-22] MEDS: ALBUTEROL INHALER 18 GM INH SCH ×4 (08:15→20:02)
[2020-02-22] MEDS: VALSARTAN 80 MG TABLET PO SCH (08:32)
[2020-02-22] MEDS: ASCORBIC ACID 500 MG TABLET PO SCH ×2 (08:34→21:09)
[2020-02-22] MEDS: ZINC SULFATE 220 MG CAPSULE PO SCH (08:34)
[2020-02-22] MEDS: guaiFENesin 200 MG/10 ML UDCUP PO SCH ×2 (08:34→21:09)
[2020-02-22 09:27] LABS: INR 1.2; PT Patient Result 12.3 SECS (9.8-11.9)
[2020-02-23] MEDS: DEXTROSE 5% NACL 0.9% 1,000 ML IV SCH (06:13)
[2020-02-23] MEDS: LEVOTHYROXINE 112 MCG TABLET PO SCH (06:13)
[2020-02-23] MEDS ORDERED: LACTATED RINGERS 1,000 ML IV SCH (08:00)
[2020-02-23] MEDS: ATROVENT INHALER INH SCH ×4 (08:39→21:44)
[2020-02-23] MEDS: ENOXAPARIN 60 MG/0.6 ML SYRINGE SUBCUT SCH ×2 (08:39→21:15)
[2020-02-23] MEDS: ALBUTEROL INHALER 18 GM INH SCH ×4 (08:39→21:44)
[2020-02-23] MEDS: ZINC SULFATE 220 MG CAPSULE PO SCH (08:40)
[2020-02-23] MEDS: VALSARTAN 80 MG TABLET PO SCH (08:40)
[2020-02-23] MEDS: guaiFENesin 200 MG/10 ML UDCUP PO SCH ×2 (08:40→21:44)
[2020-02-23] MEDS: ASCORBIC ACID 500 MG TABLET PO SCH ×2 (08:40→21:44)
[2020-02-23 11:36] LABS: Phosphorous 1.4 MG/DL (2.5-4.9); Potassium 3.5 MMOL/L (3.5-5.1)
[2020-02-23] MEDS: FAT EMULSION 20% 250 ML IV SCH (16:24)
[2020-02-23] MEDS: TRACE ELEMENTS (5) 1 ML, MULTIVITAMIN INJ 10 ML in AMINO ACIDS/DEXT/LYTES 4.25-5% 2,000 ML IV SCH (16:46)
[2020-02-24] MEDS: LEVOTHYROXINE 112 MCG TABLET PO SCH (07:04)
[2020-02-24 07:15] LABS: Anion Gap 10.5 MMOL/L (5.0-15.0); Osmolality,Calculated 281.1 MOS/KG (273-304); Phosphorous 1.5 MG/DL (2.5-4.9); Potassium 3.5 MMOL/L (3.5-5.1); Prealbumin 13.2 MG/DL (20-40)
[2020-02-24] MEDS: ENOXAPARIN 60 MG/0.6 ML SYRINGE SUBCUT SCH ×2 (08:56→21:10)
[2020-02-24] MEDS: VALSARTAN 80 MG TABLET PO SCH (08:57)
[2020-02-24] MEDS: ATROVENT INHALER INH SCH ×4 (08:57→21:10)
[2020-02-24] MEDS: ALBUTEROL INHALER 18 GM INH SCH ×4 (08:57→21:10)
[2020-02-24] MEDS: guaiFENesin 200 MG/10 ML UDCUP PO SCH ×2 (08:57→22:11)
[2020-02-24] MEDS: ASCORBIC ACID 500 MG TABLET PO SCH ×2 (08:58→22:11)
[2020-02-24] MEDS: ZINC SULFATE 220 MG CAPSULE PO SCH (08:58)
[2020-02-24] MEDS ORDERED: FUROSEMIDE 20 MG/2 ML VIAL IV ONE (10:06)
[2020-02-24] MEDS ORDERED: POTASSIUM PHOSPHATE 30 MMOL in SODIUM CHLORIDE 0.9% 250 ML IV ONE (12:00)
[2020-02-24] MEDS: TRACE ELEMENTS (5) 1 ML, MULTIVITAMIN INJ 10 ML in AMINO ACIDS/DEXT/LYTES 4.25-5% 2,000 ML IV SCH (13:48)
[2020-02-25 06:52] LABS: Basophils % 0.4 % (0.0-0.8); Eosinophils % 0.1 % (0.00-10.9); Hemoglobin 9.9 GM/DL (14.0-18.0); Hgb & Hct Comparison OK; Immature Granulocytes % 3.1 %; Immature Granulocytes Absolute 0.35 #; Lymphocytes # 5.7 10*3/uL (1.4-4.0); Lymphocytes % 50.6 % (21.2-54.2); Mean Corpuscular HGB Conc 31.9 GM/DL (32-36); Mean Corpuscular Hemoglobin 34 PG (27-34); Mean Corpuscular Volume 105.4 FL (87-102); Monocytes # 0.3 10*3/uL (0.11-0.8); Monocytes % 2.4 % (1.7-12.7); Neutrophils # 4.8 10*3/uL (1.4-7.4); Neutrophils % 43.4 % (38.7-73.9); Platelet Count 171 T/CUMM (130-400)
[2020-02-25] MEDS: LEVOTHYROXINE 112 MCG TABLET PO SCH (07:37)
[2020-02-25] MEDS: ATROVENT INHALER INH SCH ×4 (09:38→21:32)
[2020-02-25] MEDS: FAT EMULSION 20% 250 ML IV SCH (09:38)
[2020-02-25] MEDS: VALSARTAN 80 MG TABLET PO SCH (09:39)
[2020-02-25] MEDS: guaiFENesin 200 MG/10 ML UDCUP PO SCH ×2 (09:39→22:02)
[2020-02-25] MEDS: ZINC SULFATE 220 MG CAPSULE PO SCH (09:39)
[2020-02-25] MEDS: ALBUTEROL INHALER 18 GM INH SCH ×4 (09:39→21:32)
[2020-02-25] MEDS: TRACE ELEMENTS (5) 1 ML, MULTIVITAMIN INJ 10 ML in AMINO ACIDS/DEXT/LYTES 4.25-5% 2,000 ML IV SCH (09:39)
[2020-02-25] MEDS: ASCORBIC ACID 500 MG TABLET PO SCH ×2 (09:39→22:02)
[2020-02-25] MEDS: DEXTROSE 5% NACL 0.9% 1,000 ML IV SCH (12:01)
[2020-02-25] MEDS: FUROSEMIDE 20 MG TABLET PO SCH (12:41)
[2020-02-25 17:52] LABS: Hematocrit 32.3 VOL% (42.0-52.0); Hemoglobin 10.4 GM/DL (14.0-18.0); Hgb & Hct Comparison OK
[2020-02-26 06:24] LABS: Hematocrit 31.9 VOL% (42.0-52.0); Hemoglobin 10.4 GM/DL (14.0-18.0); Hgb & Hct Comparison OK
[2020-02-26] MEDS: LEVOTHYROXINE 112 MCG TABLET PO SCH (06:31)
[2020-02-26 06:32] LABS: Magnesium 2.4 MG/DL (1.8-2.4); Osmolality,Calculated 277.5 MOS/KG (273-304); Phosphorous 3.3 MG/DL (2.5-4.9)
[2020-02-26 06:36] LABS: PT Patient Result 10.9 SECS (9.8-11.9)
[2020-02-26] MEDS ORDERED: DEXTROSE 5% 1,000 ML IV SCH (07:30)
[2020-02-26] MEDS ORDERED: LACTATED RINGERS 1,000 ML IV SCH (08:00)
[2020-02-26] MEDS ORDERED: ceFAZolin 1,000 MG in SYRINGE 1 EACH IV ONE (08:23)
[2020-02-26] MEDS ORDERED: LIDOCAINE 2% 5 ML VIAL ONE (09:00)
[2020-02-26] MEDS ORDERED: propofoL 200 MG/20 ML VIAL IV ONE (09:00)
[2020-02-26] MEDS: ALBUTEROL INHALER 18 GM INH SCH ×4 (09:17→21:16)
[2020-02-26] MEDS: TRACE ELEMENTS (5) 1 ML, MULTIVITAMIN INJ 10 ML in AMINO ACIDS/DEXT/LYTES 4.25-5% 2,000 ML IV SCH (10:19)
[2020-02-26] MEDS: VALSARTAN 80 MG TABLET PO SCH (12:39)
[2020-02-26] MEDS: FUROSEMIDE 20 MG TABLET PO SCH (12:40)
[2020-02-26] MEDS: ATROVENT INHALER INH SCH ×4 (12:40→21:16)
[2020-02-26] MEDS: ZINC SULFATE 220 MG CAPSULE PO SCH (12:41)
[2020-02-26] MEDS: ASCORBIC ACID 500 MG TABLET PO SCH ×2 (12:41→21:15)
[2020-02-26] MEDS: guaiFENesin 200 MG/10 ML UDCUP PO SCH ×2 (12:41→21:15)
[2020-02-26] MEDS: ENOXAPARIN 40 MG/0.4 ML SYRINGE SUBCUT SCH (21:19)
[2020-02-27 05:36] LABS: Hematocrit 28.3 VOL% (42.0-52.0); Hemoglobin 9.1 GM/DL (14.0-18.0); Hgb & Hct Comparison OK
[2020-02-27] MEDS: LEVOTHYROXINE 112 MCG TABLET PO SCH (06:53)
[2020-02-27] MEDS ORDERED: ceFAZolin 1,000 MG in SYRINGE 1 EACH IV ONE (08:00)
[2020-02-27] MEDS ORDERED: fentaNYL 100 MCG/2 ML VIAL IV ONE (08:30)
[2020-02-27] MEDS ORDERED: MIDAZOLAM 2 MG/2 ML VIAL IV ONE (08:30)
[2020-02-27] MEDS ORDERED: DIAZEPAM 5 MG TABLET PO ONE (08:30)
[2020-02-27] MEDS: TRACE ELEMENTS (5) 1 ML, MULTIVITAMIN INJ 10 ML in AMINO ACIDS/DEXT/LYTES 4.25-5% 2,000 ML IV SCH (11:30)
[2020-02-27] MEDS: VALSARTAN 80 MG TABLET PO SCH (11:52)
[2020-02-27] MEDS: FUROSEMIDE 20 MG TABLET PO SCH (11:52)
[2020-02-27] MEDS: ATROVENT INHALER INH SCH ×2 (11:53→16:44)
[2020-02-27] MEDS: ALBUTEROL INHALER 18 GM INH SCH ×4 (11:53→20:15)
[2020-02-27] MEDS: guaiFENesin 200 MG/10 ML UDCUP PO SCH (11:54)
[2020-02-27] MEDS: ASCORBIC ACID 500 MG TABLET PO SCH (11:54)
[2020-02-27] MEDS: ZINC SULFATE 220 MG CAPSULE PO SCH (11:54)
[2020-02-27] MEDS: FAT EMULSION 20% 250 ML IV SCH (11:55)
[2020-02-27] MEDS: ENOXAPARIN 40 MG/0.4 ML SYRINGE SUBCUT SCH (20:15)
[2020-02-28] MEDS: guaiFENesin 200 MG/10 ML UDCUP PO SCH ×4 (01:10→21:36)
[2020-02-28] MEDS: ASCORBIC ACID 500 MG TABLET PO SCH ×4 (01:10→21:36)
[2020-02-28] MEDS: LEVOTHYROXINE 112 MCG TABLET PO SCH (07:21)
[2020-02-28 07:42] LABS: Hematocrit 33.6 VOL% (42.0-52.0); Hemoglobin 10.8 GM/DL (14.0-18.0); Hgb & Hct Comparison OK
[2020-02-28] MEDS: ATROVENT INHALER INH SCH ×6 (08:55→21:40)
[2020-02-28] MEDS: ALBUTEROL INHALER 18 GM INH SCH ×4 (08:55→21:40)
[2020-02-28] MEDS ORDERED: GLUCAGON 1 MG VIAL SUBCUT ONE (09:30)
[2020-02-28] MEDS ORDERED: DIAZEPAM 5 MG TABLET ONE (09:33)
[2020-02-28] MEDS ORDERED: ceFAZolin 1,000 MG in SYRINGE 1 EACH IV ONE (09:35)
[2020-02-28] MEDS: TRACE ELEMENTS (5) 1 ML, MULTIVITAMIN INJ 10 ML in AMINO ACIDS/DEXT/LYTES 4.25-5% 2,000 ML IV SCH (10:02)
[2020-02-28] MEDS ORDERED: MIDAZOLAM 2 MG/2 ML VIAL ONE (10:35)
[2020-02-28] MEDS ORDERED: fentaNYL 100 MCG/2 ML VIAL ONE (10:35)
[2020-02-28] MEDS ORDERED: GLUCAGON 1 MG VIAL IV ONE (10:42)
[2020-02-28] MEDS ORDERED: LIDOCAINE 1%/EPI INJ 20 ML VIAL ONE (11:02)
[2020-02-28] MEDS: VALSARTAN 80 MG TABLET PO SCH (15:24)
[2020-02-28] MEDS: FUROSEMIDE 20 MG TABLET PO SCH (15:24)
[2020-02-28] MEDS: ZINC SULFATE 220 MG CAPSULE PO SCH (15:30)
[2020-02-28] MEDS: ENOXAPARIN 40 MG/0.4 ML SYRINGE SUBCUT SCH (21:32)
[2020-02-29] MEDS: LEVOTHYROXINE 112 MCG TABLET PO SCH (06:48)
[2020-02-29 06:50] LABS: Anion Gap 7.2 MMOL/L (5.0-15.0); Magnesium 2.3 MG/DL (1.8-2.4); Osmolality,Calculated 273.1 MOS/KG (273-304); Potassium 4.2 MMOL/L (3.5-5.1)
[2020-02-29] MEDS: TRACE ELEMENTS (5) 1 ML, MULTIVITAMIN INJ 10 ML in AMINO ACIDS/DEXT/LYTES 4.25-5% 2,000 ML IV SCH (08:10)
[2020-02-29] MEDS: FUROSEMIDE 20 MG TABLET PO SCH (09:00)
[2020-02-29] MEDS: ASCORBIC ACID 500 MG TABLET PO SCH ×2 (09:00→23:03)
[2020-02-29] MEDS: ZINC SULFATE 220 MG CAPSULE PO SCH (09:00)
[2020-02-29] MEDS: guaiFENesin 200 MG/10 ML UDCUP PO SCH ×2 (09:00→23:03)
[2020-02-29] MEDS: VALSARTAN 80 MG TABLET PO SCH (09:00)
[2020-02-29] MEDS: FAT EMULSION 20% 250 ML IV SCH (11:16)
[2020-02-29] MEDS: ATROVENT INHALER INH SCH ×4 (11:16→23:50)
[2020-02-29] MEDS: ALBUTEROL INHALER 18 GM INH SCH ×4 (11:17→23:50)
[2020-02-29] MEDS: ENOXAPARIN 40 MG/0.4 ML SYRINGE SUBCUT SCH (21:27)
[2020-03-01] MEDS: TRACE ELEMENTS (5) 1 ML, MULTIVITAMIN INJ 10 ML in AMINO ACIDS/DEXT/LYTES 4.25-5% 2,000 ML IV SCH (04:40)
[2020-03-01] MEDS: LEVOTHYROXINE 112 MCG TABLET PO SCH (06:52)
[2020-03-01] MEDS: FUROSEMIDE 20 MG TABLET PO SCH (11:13)
[2020-03-01] MEDS: VALSARTAN 80 MG TABLET PO SCH (11:13)
[2020-03-01] MEDS: ASCORBIC ACID 500 MG TABLET PO SCH ×2 (11:13→21:53)
[2020-03-01] MEDS: guaiFENesin 200 MG/10 ML UDCUP PO SCH ×2 (11:14→21:52)
[2020-03-01] MEDS: THIAMINE 100 MG TABLET PO SCH (12:05)
[2020-03-01] MEDS: ZINC SULFATE 220 MG CAPSULE PO SCH (12:06)
[2020-03-01] MEDS: ALBUTEROL INHALER 18 GM INH SCH ×4 (13:23→21:45)
[2020-03-01] MEDS: ATROVENT INHALER INH SCH ×4 (13:25→21:45)
[2020-03-01] MEDS: ENOXAPARIN 40 MG/0.4 ML SYRINGE SUBCUT SCH (21:46)
[2020-03-02 06:34] LABS: Magnesium 2.2 MG/DL (1.8-2.4); Osmolality,Calculated 268.2 MOS/KG (273-304); Phosphorous 3.4 MG/DL (2.5-4.9); Prealbumin 19.1 MG/DL (20-40)
[2020-03-02] MEDS: guaiFENesin 200 MG/10 ML UDCUP PO SCH (10:34)
[2020-03-02] MEDS: ZINC SULFATE 220 MG CAPSULE PO SCH (10:35)
[2020-03-02] MEDS: ASCORBIC ACID 500 MG TABLET PO SCH (10:35)
[2020-03-02] MEDS: THIAMINE 100 MG TABLET PO SCH (10:35)
[2020-03-02] MEDS: FUROSEMIDE 20 MG TABLET PO SCH (10:35)
[2020-03-02] MEDS: VALSARTAN 80 MG TABLET PO SCH (10:35)
[2020-03-02] MEDS: LEVOTHYROXINE 112 MCG TABLET PO SCH (10:35)
[2020-03-02] MEDS: ATROVENT INHALER INH SCH ×4 (10:36→20:58)
[2020-03-02] MEDS: ALBUTEROL INHALER 18 GM INH SCH ×4 (10:36→20:58)
[2020-03-02] MEDS ORDERED: DOCUSATE SODIUM 100 MG CAPSULE PEG PRN (13:53)
[2020-03-02] MEDS: guaiFENesin 200 MG/10 ML UDCUP PEG SCH (20:57)
[2020-03-02] MEDS: ENOXAPARIN 40 MG/0.4 ML SYRINGE SUBCUT SCH (20:57)
[2020-03-02] MEDS: ASCORBIC ACID 500 MG TABLET PEG SCH (20:57)
[2020-03-03] MEDS: LEVOTHYROXINE 112 MCG TABLET PEG SCH (07:08)
[2020-03-03] MEDS: ALBUTEROL INHALER 18 GM INH SCH ×4 (09:48→22:29)
[2020-03-03] MEDS: ATROVENT INHALER INH SCH ×4 (09:48→22:29)
[2020-03-03] MEDS: ASCORBIC ACID 500 MG TABLET PEG SCH ×2 (09:49→22:29)
[2020-03-03] MEDS: THIAMINE 100 MG TABLET PEG SCH (09:49)
[2020-03-03] MEDS: VALSARTAN 80 MG TABLET PEG SCH (09:49)
[2020-03-03] MEDS: FUROSEMIDE 20 MG TABLET PEG SCH (09:49)
[2020-03-03] MEDS: ZINC SULFATE 220 MG CAPSULE PEG SCH (09:50)
[2020-03-03] MEDS: guaiFENesin 200 MG/10 ML UDCUP PEG SCH ×2 (09:50→22:28)
[2020-03-03] MEDS: ACETAMINOPHEN 325 MG TABLET PEG PRN (22:29)
[2020-03-03] MEDS: ENOXAPARIN 40 MG/0.4 ML SYRINGE SUBCUT SCH (22:29)
[2020-03-04] MEDS: LEVOTHYROXINE 112 MCG TABLET PEG SCH (06:30)
[2020-03-04] MEDS: ASCORBIC ACID 500 MG TABLET PEG SCH (09:36)
[2020-03-04] MEDS: guaiFENesin 200 MG/10 ML UDCUP PEG SCH (09:36)
[2020-03-04] MEDS: ACETAMINOPHEN 325 MG TABLET PEG PRN (09:36)
[2020-03-04] MEDS: THIAMINE 100 MG TABLET PEG SCH (09:36)
[2020-03-04] MEDS: ZINC SULFATE 220 MG CAPSULE PEG SCH (09:36)
[2020-03-04] MEDS: VALSARTAN 80 MG TABLET PEG SCH (09:36)
[2020-03-04] MEDS: FUROSEMIDE 20 MG TABLET PEG SCH (09:37)
[2020-03-04] MEDS: ATROVENT INHALER INH SCH ×2 (09:40→13:57)
[2020-03-04] MEDS: ALBUTEROL INHALER 18 GM INH SCH ×2 (09:40→13:57)
[2020-03-04 11:10] VITALS: BP 104/52
== END 2020-03-04 16:30 | disposition swing bed (61) ==
LOC: EDBD → EDUNIT# → N.ED 11:08 → SUATTDRO 14:30 → N.EDINP 14:30 → N.2E 15:55 → N.3E 02-27 15:03
PROVIDERS: ADMIT Internal Medicine; ATTEND Internal Medicine